=== PATIENT | female | born 1985 | race Caucasian/White ===

== ENCOUNTER 2016-11-05 14:18 | Emergency (ER) | payer OTHER ==
[2016-08-07 08:53] VITALS: BMI 40.2
--- NOTE | 2016-11-05 15:23 | OBHP ---
Datetime: 11/05/2016 15:16 IP Adm Impression: Term, intrauterine ; No Active Labor IP Chief Complaint Other: P2 at 38weeks 4days Gestation sent for elevated BP in the office for monit oring and to rule out Preeclampsia IP Admit Plan: Observation/Evaluation Admit Comment, IP Provider: Chronic Hypertension rule out Superimposed Preeclampsia. Pelvic Type - PN: Adequate Extremities - PN: Normal Abdomen - PN: Normal Back - PN: Normal Breast - PN: Not Done Lungs - PN: Normal Heart - PN: Normal Thyroid - PN: Not Done Neurologic - PN: Not Done HEENT - PN: Not Done General - PN: Normal Weight - Estimated: 3200 Presentation-Admit: Vertex FHR - Baseline A Provider: 130 Membranes, Provider: Intact Contraction Comments Provider: 0 Gestation - Est Wks by US: 38.0 Vital Signs Provider: Reviewed; Within Normal Limits NICHD Variability Prov Fetus A: Moderate 6-25bpm FHR Category Provider Fetus A: Category I NICHD Decel Fetus A IP Provider: None Genitourinary Exam: Normal DTRs - PN: Normal
[2016-11-05 15:34] LABS: EOS # 0.1 K/uL (0.0-0.7); LYMPH # 1.8 K/uL (1.0-4.3); MONO # 0.6 K/uL (0.0-0.8)
[2016-11-05 15:39] LABS: URINE BACTERIA RARE (<OCC); URINE BILIRUBIN NEGATIVE (NEGATIVE); URINE BLOOD 2+ (NEGATIVE); URINE COLOR Yellow (YELLOW); URINE GLUCOSE (UA) NORMAL (Normal); URINE KETONE NEGATIVE (NEGATIVE); URINE LEUKOCYTE ESTERASE NEG Leu/uL (Negative); URINE PROTEIN NEGATIVE (NEGATIVE); URINE UROBILINOGEN NORMAL mg/dL (0.2-1.0); WBC URINE 1 /hpf (0-5)
[2016-11-05 15:41] LABS: INR 0.9
[2016-11-05 15:42] LABS: BASO # 0.1 K/uL (0.0-0.2); BASO % 0.7 % (0.0-2.0); HEMATOCRIT 28.9 % (34.0-47.0); LYMPH % 19.9 % (20.0-40.0); MEAN CELL VOLUME 76.2 fL (81.0-99.0); MEAN CORPUSCULAR HEMOGLOBIN 25.4 pg (27.0-31.0); MEAN CORPUSCULAR HGB CONC 33.3 g/dL (33.0-37.0); MEAN PLATELET VOLUME 11.6 fL (7.2-11.7); MONO % 6.7 % (0.0-10.0); NRBC % 0.1 % (0.0-2.0); RED CELL DISTRIBUTION WIDTH 14.2 % (11.5-14.5); WHITE BLOOD COUNT 8.8 K/uL (4.8-10.8)
[2016-11-05 15:43] LABS: CHLORIDE 103 mmol/L (98-107); POTASSIUM 3.7 mmol/L (3.6-5.2); SODIUM 133 mmol/L (132-148)
[2016-11-05 15:45] LABS: GFR AFRICAN-AMERICAN > 60
[2016-11-05 15:46] LABS: ALKALINE PHOSPHATASE 152 U/L (38-126); ALT/SGPT 29 U/L (9-52); AST/SGOT 29 U/L (14-36); BILIRUBIN,TOTAL 0.2 mg/dL (0.2-1.3); BLOOD UREA NITROGEN 11 mg/dL (7-17); CARBON DIOXIDE 22 mmol/L (22-30); GLUCOSE,RANDOM 87 mg/dL (65-105)
[2016-11-05 15:47] LABS: CALCIUM 8.1 mg/dl (8.6-10.4)
== END 2016-11-05 16:32 | disposition home or self-care (01) ==
LOC: C.EROB 14:18
DX: O16.3 Unspecified maternal hypertension, third trimester (principal); Z3A.38 38 weeks gestation of pregnancy

== ENCOUNTER 2016-11-05 23:20 | Emergency (ER) | payer OTHER ==
[2016-11-05 23:21] VITALS: BMI 40.2
[2016-11-05 23:52] VITALS: BP 146/97; PULSE 73; RESP 20; TEMP 98.3; O2SAT 100
--- NOTE | 2016-11-05 23:59 | C.PDOC ---
Time Seen by Provider: 11/05/16 23:58 Chief Complaint (Nursing): High Blood Pressure Past Medical History Vital Signs: Last Vital Signs Temp 98.3 F 11/05/16 23:48 Pulse 73 11/05/16 23:48 Resp 20 11/05/16 23:48 BP 146/97 H 11/05/16 23:48 Pulse Ox 100 11/05/16 23:48 - Medical History PMH: Fractures (RT.ARM CASTED CHILDHOOD), HTN, Hypercholesterolemia, Sleep Apnea (USES C-PAP) Denies: Chronic Kidney Disease Surgical History: Endoscopy - [facility] Procedures ESOPHAGOGASTRODUODENOSCOPY [EGD] W/CLOSED BIOPSY (11/29/14) Family History: States: Unknown Family Hx - Social History Hx Alcohol Use: Yes Hx Substance Use: No ED Course And Treatment O2 Sat by Pulse Oximetry: 100 Disposition Counseled Patient/Family Regarding: Studies Performed, Diagnosis - Disposition Disposition Time: 23:59
--- NOTE | 2016-11-06 01:57 | OBHP ---
Datetime: 11/06/2016 01:45 IP Adm Impression: Term, intrauterine ; No Active Labor; Intact Membranes IP Chief Complaint Other: 31 year old P2 at 38 weeks 5 days complaining of BP140/100 at home. Elizabeth garcia was seen yesterday from clinic with elevated BP in the office but all BPs were normal in [facility]. Jaylin ent denies headache, no blurry vision. Patient has a history of Chronic Hypertension IP Admit Plan Other: Discharged Against Medical Advice Admit Comment, IP Provider: BPs normal. Discussed with Dr. Kaminski who recommended labor induction. However, patient refused and signed out against medical advice. Dr. Kaminski aware. Will follow up 10/18 10/02. Pelvic Type - PN: Adequate Extremities - PN: Normal Abdomen - PN: Normal Back - PN: Normal Breast - PN: Not Done Lungs - PN: Normal Heart - PN: Normal Thyroid - PN: Not Done Neurologic - PN: Not Done HEENT - PN: Not Done General - PN: Normal FHR - Baseline A Provider: 120 Gestation - Est Wks by US: 38.0 EGA AdmitDate IP: 38.5 Vital Signs Provider: Reviewed; Within Normal Limits IP Chief Complaint: Signs/Symptoms Gestational HTN NICHD Variability Prov Fetus A: Moderate 6-25bpm NICHD Accel Fetus A IP Provider: 15X15 FHR Category Provider Fetus A: Category I NICHD Decel Fetus A IP Provider: None Genitourinary Exam: Normal DTRs - PN: Normal
--- NOTE | 2016-11-08 19:39 | OBHP ---
Datetime: 11/08/2016 19:22 IP Adm Impression: Term, intrauterine ; No Active Labor IP Chief Complaint Other: H/o elevated BPs in the current IP Adm Impression Other: Gestational Hypertension IP Admit Plan: Admit to unit; Initiate labor protocol Admit Comment, IP Provider: 31yo with IUP at 39wks, with h/o elevated BPs in current , reporting here today for IOL. Pt denies headache, dizziness, blurry vision or epigatric tenderness. Also denies VB or LOF and feels good movements. TOCO- irregular, FHR- Category 1, Cx: 1.5/30/-3, Vtx Assessment: IUP at 39wKs Gestational Hypertension. Plan: Admit to LND. Induction of labor Pelvic Type - PN: Adequate Extremities - PN: Normal Abdomen - PN: Normal Back - PN: Normal Breast - PN: Normal Lungs - PN: Normal Heart - PN: Normal Thyroid - PN: Normal Neurologic - PN: Normal HEENT - PN: Normal General - PN: Normal Presentation-Admit: Vertex FHR - Baseline A Provider: 150 Contraction Comments Provider: irregular Comments, ACOG Physical Exam: Abd: soft,NT, BS- present Gestation - Est Wks by US: 39.0 EGA AdmitDate IP: 39.0 IP Chief Complaint: Scheduled induction of labor NICHD Variability Prov Fetus A: Moderate 6-25bpm NICHD Accel Fetus A IP Provider: 15X15 NICHD Decel Fetus A IP Provider: None Dilatation, Provider: 2 Effacement, Provider: 30 Station, Provider: -3 Genitourinary Exam: Normal DTRs - PN: Normal
== END 2016-11-06 01:44 | disposition left against medical advice (07) ==
LOC: C.EROB 23:20 → C.ER 23:20 → C.EROB 11-06 01:44
DX: O16.3 Unspecified maternal hypertension, third trimester (principal); Z3A.38 38 weeks gestation of pregnancy

== ENCOUNTER 2016-11-08 19:44 | Inpatient (IN) | payer OTHER ==
--- NOTE | 2016-11-08 19:46 | OBADHP ---
Datetime: 11/08/2016 19:22 IP Chief Complaint Other: H/o elevated BPs in the current IP Adm Impression Other: Gestational Hypertension Admit Comment, IP Provider: 31yo with IUP at 39wks, with h/o elevated BPs in current , reporting here today for IOL. Pt denies headache, dizziness, blurry vision or epigatric tenderness. Also denies VB or LOF and feels good movements. TOCO- irregular, FHR- Category 1, Cx: 1.5/30/-3, Vtx Assessment: IUP at 39wKs Gestational Hypertension. Plan: Admit to LND. Induction of labor Pelvic Type - PN: Adequate Extremities - PN: Normal Abdomen - PN: Normal Back - PN: Normal Breast - PN: Normal Lungs - PN: Normal Heart - PN: Normal Thyroid - PN: Normal Neurologic - PN: Normal HEENT - PN: Normal General - PN: Normal Presentation-Admit: Vertex FHR - Baseline A Provider: 150 Contraction Comments Provider: irregular Comments, ACOG Physical Exam: Abd: soft,NT, BS- present Gestation - Est Wks by US: 39.0 IP Chief Complaint: Scheduled induction of labor NICHD Variability Prov Fetus A: Moderate 6-25bpm NICHD Accel Fetus A IP Provider: 15X15 NICHD Decel Fetus A IP Provider: None Dilatation, Provider: 2 Effacement, Provider: 30 Station, Provider: -3 Genitourinary Exam: Normal DTRs - PN: Normal EGA AdmitDate IP: 39.0 IP Adm Impression: Term, intrauterine ; No Active Labor IP Admit Plan: Admit to unit; Initiate labor protocol Datetime: 11/06/2016 01:45 IP Admit Plan Other: Discharged Against Medical Advice Vital Signs Provider: Reviewed; Within Normal Limits FHR Category Provider Fetus A: Category I Datetime: 11/05/2016 15:16 Weight - Estimated: 3200 Membranes, Provider: Intact
[2016-11-08 19:49] VITALS: BMI 32.2
[2016-11-08] MEDS ORDERED: Lactated Ringer's 1,000 ML IV SCH (20:00)
[2016-11-08 20:24] LABS: BASO # 0.1 K/uL (0.0-0.2); BASO % 0.6 % (0.0-2.0); EOS # 0.1 K/uL (0.0-0.7); EOS % 0.7 % (0.0-4.0); HEMATOCRIT 29.9 % (34.0-47.0); LYMPH # 1.6 K/uL (1.0-4.3); LYMPH % 19.9 % (20.0-40.0); MEAN CELL VOLUME 76.4 fL (81.0-99.0); MEAN CORPUSCULAR HEMOGLOBIN 24.6 pg (27.0-31.0); MEAN CORPUSCULAR HGB CONC 32.2 g/dL (33.0-37.0); MEAN PLATELET VOLUME 11.3 fL (7.2-11.7); MONO # 0.4 K/uL (0.0-0.8); MONO % 4.9 % (0.0-10.0); RED CELL DISTRIBUTION WIDTH 14.3 % (11.5-14.5); WHITE BLOOD COUNT 8.2 K/uL (4.8-10.8)
[2016-11-08 20:34] LABS: CHLORIDE 103 mmol/L (98-107); POTASSIUM 3.8 mmol/L (3.6-5.2); RBC URINE 10 /hpf (0-3); SODIUM 134 mmol/L (132-148); URINE BACTERIA MOD (<OCC); URINE BILIRUBIN NEGATIVE (NEGATIVE); URINE BLOOD 3+ (NEGATIVE); URINE GLUCOSE (UA) NORMAL (Normal); URINE KETONE NEGATIVE (NEGATIVE); URINE LEUKOCYTE ESTERASE 2+ Leu/uL (Negative); URINE PROTEIN 2+ mg/dL (NEGATIVE); URINE UROBILINOGEN NORMAL mg/dL (0.2-1.0); WBC CLUMPS FEW /hpf; WBC URINE 237 /hpf (0-5)
[2016-11-08 20:36] LABS: BILIRUBIN,TOTAL 0.1 mg/dL (0.2-1.3); GFR AFRICAN-AMERICAN > 60
[2016-11-08 20:37] LABS: ALKALINE PHOSPHATASE 179 U/L (38-126); ALT/SGPT 15 U/L (9-52); AST/SGOT 25 U/L (14-36); BLOOD UREA NITROGEN 12 mg/dL (7-17); CARBON DIOXIDE 20 mmol/L (22-30); GLUCOSE,RANDOM 79 mg/dL (65-105)
[2016-11-08 20:38] LABS: CALCIUM 8.1 mg/dl (8.6-10.4)
[2016-11-08] MEDS ORDERED: Oxytocin 30 UNIT 500 ML IV ONE (21:07)
[2016-11-08 21:12] LABS: URINE COLOR YELLOW (YELLOW)
[2016-11-08] MEDS ORDERED: Oxytocin 30 UNIT 500 ML IV SCH (21:15)
[2016-11-09] MEDS ORDERED: Lidocaine 2% MPF (5 ml) Inj ONE (03:10)
--- NOTE | 2016-11-09 03:37 | OBDS ---
DELIVERY PERSONNEL Delivery Doctor: Raul Gomez MD Scrub Nurse: Adrianna Mcintosh OBT Industrial Custodian: Vickie Hou RN MATERNAL INFORMATION Delivery Anesthesia: None Medications in Delivery: PITOCIN Estimated Blood Loss (ml): 200 Placenta Cultured: No Maternal Complications: None Provider Comments: Uncomplicated Spontaneous vaginal delivery of a viable male with sco res of 9 and 9. LABOR SUMMARY EDC: 11/15/2016 00:00 No. Babies in Womb: 1 Attempted: No Labor Anesthesia: None LABOR INFORMATION Onset of Labor: 11/09/2016 23:00 Complete Dilatation: 11/09/2016 03:15 Oxytocin: Induction Group B Beta Strep: Negative Antibiotics Time of Last Dose: NONE Steroids Given: None Reason Steroids Not Administered: Not Applicable MEMBRANES Membranes Rupture Method: Artificial Rupture of Membranes: 11/09/2016 00:05 Length of Rupture (hrs): 3.25 Amniotic Fluid Color: Clear Amniotic Fluid Amount: Moderate Amniotic Fluid Odor: Normal STAGES OF LABOR Stage 1 hrs: -19 Stage 1 min: -45 Stage 2 hrs: 0 Stage 2 min: 5 Stage 3 hrs: 0 Stage 3 min: 8 Total Time in Labor hrs: -19 Total Time in Labor min: -32 VAGINAL DELIVERY Episiotomy: None Laceration Extension: N/A Laceration Type: None Initial Vag Sponge Count: 10+1 Final Vag Sponge Count: 10+1 Initial Vag Sharps Count: 0 Final Vag Sharps Count: 0 Sponge Count Correct: Yes; Vaginal Sweep Performed Sharps Count Correct: Yes BABY A INFORMATION Infant Delivery Date/Time: 11/09/2016 03:20 Method of Delivery: Vaginal Born in Route : No : N/A Forceps: N/A Vacuum Extraction: N/A Shoulder Dystocia : No SHOULDER DYSTOCIA BABY A Infant Delivery Date/Time: 11/09/2016 03:20 PRESENTATION/POSITION BABY A Presentation: Cephalic Cephalic Presentation: Vertex Vertex Position: Right Occipital Anterior Breech Presentation: N/A PLACENTA INFORMATION BABY A Placenta Delivery Time : 11/09/2016 03:28 Placenta Method of Delivery: Spontaneous Placenta Status: Delivered SCORES BABY A Heart Rate 1 min: >100 bpm Resp Effort 1 min: Good Cry Reflex Irritability 1 min: Cough or Sneeze or Pulls Away Muscle Tone 1 min: Active Motion Color 1 min: Body [place], Extremities Blue SCORE 1 MIN: 9 Heart Rate 5 min: >100 bpm Resp Effort 5 min: Good Cry Reflex Irritability 5 min: Cough or Sneeze or Pulls Away Muscle Tone 5 min: Active Motion Color 5 min: Body [place], Extremities Blue SCORE 5 MIN: 9 INFORMATION BABY A Gestational Age at Delivery: 39.1 Gestational Status: Term Outcome : Liveborn Infant Condition : Stable Sex: Male IDENTIFICATION/MEDS BABY A ID Band Number: [id number] ID Band Location: Left Leg; Left Arm Sensor Applied: Yes Sensor Number: [id number] Sensor Location : Cord Clamp Vitamin K Given : Not Given Erythromycin Given: Not Given CORD INFORMATION BABY A No. Cord Vessels: 3 Nuchal Cord : N/A Cord Blood Taken: Yes Infant Suction: Mouth ASSESSMENT BABY A Complications: None Physical Findings at Delivery: Within Normal Limits Respirations: Appears Normal Patch Setter/ALS Called : No Transferred To: Remains with Mother
--- NOTE | 2016-11-09 03:51 | OBDS ---
DELIVERY PERSONNEL Delivery Doctor: Raul Gomez MD Scrub Nurse: Adrianna Mcintosh [employer] Ax Developer: Vickie Hou RN MATERNAL INFORMATION Delivery Anesthesia: None Medications in Delivery: PITOCIN Estimated Blood Loss (ml): 200 Placenta Cultured: No Maternal Complications: None RN Comments: ALIVE MALE DELIVERED WITH INTACT PERINUEIM. DR GOMEZ ATTENDED DELIVERY. A/S , WT 6-9. INFANT ATTENDED BY MAYUR BUSTAMANTE RN Provider Comments: Uncomplicated Spontaneous vaginal delivery of a viable male infant with sco res of 9 and 9. Precipitous delivery after 8cm. I arrived after delivery of baby. Raimundo LABOR SUMMARY EDC: 11/15/2016 00:00 No. Babies in Womb: 1 Attempted: No Labor Anesthesia: None LABOR INFORMATION Onset of Labor: 11/09/2016 23:00 Complete Dilatation: 11/09/2016 03:15 Oxytocin: Induction Group B Beta Strep: Negative Antibiotics Time of Last Dose: NONE Steroids Given: None Reason Steroids Not Administered: Not Applicable MEMBRANES Membranes Rupture Method: Artificial Rupture of Membranes: 11/09/2016 00:05 Length of Rupture (hrs): 3.25 Amniotic Fluid Color: Clear Amniotic Fluid Amount: Moderate Amniotic Fluid Odor: Normal STAGES OF LABOR Stage 1 hrs: -19 Stage 1 min: -45 Stage 2 hrs: 0 Stage 2 min: 5 Stage 3 hrs: 0 Stage 3 min: 8 Total Time in Labor hrs: -19 Total Time in Labor min: -32 VAGINAL DELIVERY Episiotomy: None Laceration Extension: N/A Laceration Type: None Laceration Repair: Not Applicable Initial Vag Sponge Count: 10+1 Final Vag Sponge Count: 10+1 Initial Vag Sharps Count: 0 Final Vag Sharps Count: 0 Sponge Count Correct: Yes; Vaginal Sweep Performed Sharps Count Correct: Yes BABY A INFORMATION Infant Delivery Date/Time: 11/09/2016 03:20 Method of Delivery: Vaginal Born in Route : No : N/A Forceps: N/A Vacuum Extraction: N/A Shoulder Dystocia : No SHOULDER DYSTOCIA BABY A Infant Delivery Date/Time: 11/09/2016 03:20 PRESENTATION/POSITION BABY A Presentation: Cephalic Cephalic Presentation: Vertex Vertex Position: Right Occipital Anterior Breech Presentation: N/A PLACENTA INFORMATION BABY A Placenta Delivery Time : 11/09/2016 03:28 Placenta Method of Delivery: Spontaneous Placenta Status: Delivered SCORES BABY A Heart Rate 1 min: >100 bpm Resp Effort 1 min: Good Cry Reflex Irritability 1 min: Cough or Sneeze or Pulls Away Muscle Tone 1 min: Active Motion Color 1 min: Body [place], Extremities Blue SCORE 1 MIN: 9 Heart Rate 5 min: >100 bpm Resp Effort 5 min: Good Cry Reflex Irritability 5 min: Cough or Sneeze or Pulls Away Muscle Tone 5 min: Active Motion Color 5 min: Body [place], Extremities Blue SCORE 5 MIN: 9 INFANT INFORMATION BABY A Gestational Age at Delivery: 39.1 Gestational Status: Term Infant Outcome : Liveborn Infant Condition : Stable Infant Sex: Male IDENTIFICATION/MEDS BABY A ID Band Number: [id number] ID Band Location: Left Leg; Left Arm Sensor Applied: Yes Sensor Number: [id number] Sensor Location : Cord Clamp Vitamin K Given : Not Given Erythromycin Given: Not Given WEIGHT/LENGTH BABY A Infant Birthweight (gms): 2975 Weight (lb): 6 Infant Weight (oz): 9 Length Inches: 19.00 Length cms: 48.3 CORD INFORMATION BABY A No. Cord Vessels: 3 Nuchal Cord : N/A Cord Blood Taken: Yes Infant Suction: Mouth ASSESSMENT BABY A Complications: None Physical Findings at Delivery: Within Normal Limits Respirations: Appears Normal Education Intern/ALS Called : No Transferred To: Remains with Mother
[2016-11-10 07:02] LABS: HEMATOCRIT 27.6 % (34.0-47.0); MEAN CELL VOLUME 76.3 fL (81.0-99.0); MEAN CORPUSCULAR HEMOGLOBIN 24.9 pg (27.0-31.0); MEAN CORPUSCULAR HGB CONC 32.6 g/dL (33.0-37.0); MEAN PLATELET VOLUME 11.5 fL (7.2-11.7); RED CELL DISTRIBUTION WIDTH 14.5 % (11.5-14.5); WHITE BLOOD COUNT 9.5 K/uL (4.8-10.8)
--- NOTE | 2016-11-10 09:55 | OBPPN ---
Datetime: 11/10/2016 09:46 PP Pain Prov: Within normal limits PP Nausea Prov: Denies PP Flatus Prov: Yes PP Breasts Prov: Normal PP Heart Prov: Normal PP Lungs Prov: Normal PP Abdomen/Uterus Prov: Normal PP Lochia Prov: Normal PP Vulva/Perineum Prov: Normal PP CVA Tenderness Prov: Normal PP Extremities Prov: Normal PP Impression Prov: Normal progression; Induced Hypertension PP Plan Prov: Continue present management
[2016-11-10] MEDS: NIFEdipine 30 mg ER Tab PO SCH (11:05)
[2016-11-11 08:20] VITALS: BP 146/89; PULSE 66; RESP 18; TEMP 97.8; O2SAT 100
--- NOTE | 2016-11-11 08:35 | OBPPN ---
Datetime: 11/11/2016 08:24 PP Pain Prov: Within normal limits PP Nausea Prov: Denies PP Flatus Prov: Yes PP Breasts Prov: Normal PP Heart Prov: Normal PP Lungs Prov: Normal PP Abdomen/Uterus Prov: Normal PP Lochia Prov: Normal PP Vulva/Perineum Prov: Normal PP CVA Tenderness Prov: Normal PP Extremities Prov: Normal PP Impression Prov: Normal progression PP Plan Prov: Discharge Vital Signs Provider PP: Reviewed Datetime: 11/10/2016 09:46 PP Progress Note Prov: start nifedipine 30mg, continue observation
--- NOTE | 2016-11-11 08:37 | OBDCSUM ---
Datetime: 11/11/2016 08:34 Discharged to, Provider: Home Follow up at, Provider: [facility] Disch Instr Activity: Normal activity; May Shower Disch Instr Diet: Regular Discharge Instructions, Provider: Routine instructions given Discharge Diagnosis, Provider: Term Delivered Discharge Time: 11/11/2016 08:35 Follow up in weeks, Provider: 1wk Disch Referrals: None Contraception discussed, Prov: Yes Disch Activity Restrictions: No exercising; No sexual activity; Nothing in vagina - [place], paul felix, douche Discharge Diagnosis Prov Other: PIH Datetime: 11/06/2016 01:44 Discharged to, Provider: Home Follow up at, Provider: [facility] Discharge Instructions, Provider: Routine instructions given Follow up in weeks, Provider: 1 week Discharge Instruct Comment, Prov: check bp bid Contraception discussed, Prov: Yes
[2016-11-11] MEDS: NIFEdipine 30 mg ER Tab PO SCH (09:54)
== END 2016-11-11 13:21 | disposition home or self-care (01) | DRG 775 ==
LOC: C.4D 19:44 → C.4M 11-09 05:17
PROVIDERS: ADMIT Obstetrics & Gynecology; ATTEND Obstetrics & Gynecology
PROC: 10E0XZZ Delivery of Products of Conception, External Approach (ICD-10-PCS; principal; 2016-11-09)
PROC: 10907ZC Drainage of Amniotic Fluid, Therapeutic from Products of Conception, Via Natural or Artificial Opening (ICD-10-PCS; 2016-11-09)
DX: O13.3 Gestational [pregnancy-induced] hypertension without significant proteinuria, third trimester (principal); Z37.0 Single live birth; Z3A.39 39 weeks gestation of pregnancy

== ENCOUNTER 2017-04-18 10:42 | Emergency (ER) | payer OTHER ==
[2017-04-18 10:42] VITALS: BMI 32.2
[2017-04-18 10:58] VITALS: TEMP 98.2
--- NOTE | 2017-04-18 12:15 | RAD ---
PROCEDURE: Right Knee Radiographs. HISTORY: Status post fall with right knee pain COMPARISON: None. FINDINGS: BONES: No evidence of acute displaced fracture nor dislocation JOINTS: Joint spaces preserved. No significant osteoarthritis. JOINT EFFUSION: Moderate-large size suprapatellar joint effusion present. OTHER FINDINGS: None. IMPRESSION: The no evidence of acute displaced fracture nor dislocation. Moderate- large suprapatellar joint effusion.
[2017-04-18 12:55] VITALS: BP 146/89; PULSE 81; RESP 18; O2SAT 98
--- NOTE | 2017-04-18 14:18 | C.PDOC ---
History Of Present Illness 32 yr old female presents to the ER for evaluation of right knee pain, s/p trip and fall last night. Patient reports minimal ambulation. Patient denies head injury, LOC, leg pain, back pain, weakness or numbness. Time Seen by Provider: 04/18/17 11:03 Chief Complaint (Nursing): Lower Extremity Problem/Injury History Per: Patient History/Exam Limitations: no limitations Onset/Duration Of Symptoms: Sudden Onset (Last night) Current Symptoms Are (Timing): Still Present Past Medical History Reviewed: Historical Data, Nursing Documentation, Vital Signs Vital Signs: Last Vital Signs Temp 98.2 F 04/18/17 10:55 Pulse 81 04/18/17 12:54 Resp 18 04/18/17 12:54 BP 146/89 04/18/17 12:54 Pulse Ox 98 04/18/17 15:30 - Medical History PMH: Fractures (RT.ARM CASTED CHILDHOOD), HTN, Hypercholesterolemia, Sleep Apnea (USES C-PAP) Surgical History: Endoscopy - [facility] Procedures DELIVERY OF PRODUCTS OF CONCEPTION, EXTERNAL APPROACH (11/08/16) DRAINAGE OF AMNIOTIC FL, THERAP FROM POC, VIA OPENING (11/08/16) ESOPHAGOGASTRODUODENOSCOPY [EGD] W/CLOSED BIOPSY (11/29/14) Family History: States: No Known Family Hx - Social History Hx Alcohol Use: Yes Hx Substance Use: No Review Of Systems Except As Marked, All Systems Reviewed And Found Negative. Musculoskeletal: Positive for: Other ((+) Right knee pain.). Negative for: Back Pain, Leg Pain Neurological: Negative for: Weakness, Numbness Physical Exam - Physical Exam Appears: Non-toxic, No Acute Distress Skin: Warm, Dry, No Rash Head: Atraumatic, Normacephalic Chest: Symmetrical, No Tenderness Cardiovascular: Rhythm Regular, No Murmur Respiratory: Normal Breath Sounds, No Rales, No Rhonchi, No Stridor, No Wheezing Extremity: Normal ROM, Tenderness (Right Knee - Diffuse tenderness.) Pulses: Left Dorsalis Pedis: Normal, Right Dorsalis Pedis: Normal Neurological/Psych: Oriented x3, Normal Speech, Normal Motor, Normal Sensation ED Course And Treatment O2 Sat by Pulse Oximetry: 98 (RA) Pulse Ox Interpretation: Normal - Other Rad X-Ray - Right Knee X-Ray: Viewed By Me, Read By Radiologist Interpretation: PROCEDURE: Right Knee Radiographs. HISTORY: Status post fall with right knee pain. COMPARISON: None. FINDINGS: BONES: No evidence of acute displaced fracture nor dislocation. JOINTS: Joint spaces preserved. No significant osteoarthritis. JOINT EFFUSION: Moderate-large size suprapatellar joint effusion present. OTHER FINDINGS: None. IMPRESSION: The no evidence of acute displaced fracture nor dislocation. Moderate- large suprapatellar joint effusion. Medical Decision Making Medical Decision Making: PLAN: * X-Ray - Right Knee w/ Patella * Motrin PO Disposition - Disposition Disposition: HOME/ ROUTINE Disposition Time: 12:20 Condition: GOOD Additional Instructions: Thank you for letting us take care of you today. Your provider was Dr. Deleon. You were treated for knee sprain. The emergency medical care you received today was directed at your acute symptoms. If you were prescribed any medication, please fill it and take as directed. It may take several days for your symptoms to resolve. Return to the Emergency Department if your symptoms worsen, do not improve, or if you have any other problems. Please contact your doctor or call one of the physicians/clinics you have been referred to that are listed on the Patient Visit Information form that is included in your discharge packet. Bring any paperwork you were given at discharge with you along with any medications you are taking to your follow up visit. Our treatment cannot replace ongoing medical care by a primary care provider (PCP) outside of the emergency department. Thank you for allowing the [facility] team to be part of your care today. Follow up with your doctor in 2-3 days for further evaluation and management. Prescriptions: Ibuprofen [Motrin] 600 mg PO Q6 PRN #20 tab PRN Reason: Pain, Moderate (4-7) Instructions: Knee Sprain (ED), Crutch Instructions (ED) Forms: Work Excuse - Clinical Impression Clinical Impression: Knee sprain - Scribe Statement The provider has reviewed the documentation as recorded by the Mariangel Salomon Provider Attestation: All medical record entries made by the Mereibmargarette were at my direction and personally dictated by me. I have reviewed the chart and agree that the record accurately reflects my personal performance of the history, physical exam, medical decision making, and the department course for this patient. I have also personally directed, reviewed, and agree with the discharge instructions and disposition.
== END 2017-04-18 12:56 | disposition home or self-care (01) ==
LOC: C.ER 10:42
DX: S83.91XA Sprain of unspecified site of right knee, initial encounter (principal); W01.0XXA Fall on same level from slipping, tripping and stumbling without subsequent striking against object, initial encounter; Y93.89 Activity, other specified; Y92.009 Unspecified place in unspecified non-institutional (private) residence as the place of occurrence of the external cause